=== PATIENT | male | born 1940 | race Caucasian/White ===

== ENCOUNTER 2023-10-27 08:14 | Inpatient (IN) ==
[2023-10-27] MEDS: Lactated Ringers SEPSIS* BAG 1,910 ML IV ONE (08:42)
[2023-10-27 08:49] LABS: ABS Lymphocytes 0.6 10^3/uL (1.0-4.8); ABS Monocytes 0.4 10^3/uL (0.0-1.1); ABS Nucleated RBC 0.01 10^3/ul; Eosinophil % 0.1 %; Hematocrit 45.6 % (38-53); Hemoglobin 15.1 g/dL (13.2-16.3); Lymphocyte % 14.7 %; Mean Corpuscular Hemoglobin 31.9 pg (27-33); Mean Corpuscular Hgb Conc 33.2 g/dL (31-36); Mean Platelet Volume 7.8 fL (7.5-11.2); Nucleated Red Blood Cells % 0.2 %/100WBC (0.0-0.8); Platelet Count 275 10^3/uL (150-450); Red Blood Count 4.75 10^6/uL (4.06-5.63); Red Cell Distribution Width 16.1 % (12-17)
[2023-10-27 08:57] LABS: Activated Partial Thrombo Time 27.3 seconds (26.0-38.0); INR 0.96 (0.83-1.13)
[2023-10-27] MEDS: Iodixanol (CONTRAST) 320 MG/ML 100 ML SDV IV ONE (09:12)
[2023-10-27 09:32] LABS: Albumin 4.1 g/dL (3.2-5.2); Albumin/Globulin Ratio 1.5 (1-3); C Reactive Protein 142.64 mg/L (<8.01); Calcium 8.9 mg/dL (8.6-10.3); Creatinine, Serum 1.76 mg/dL (0.67-1.17); Globulin 2.7 g/dL (2-4); Potassium 3.3 mmol/L (3.5-5.0); Total Protein 6.8 g/dL (6.4-8.9); eGFR CKD-EPI 38.1 (>60)
[2023-10-27] MEDS: Acetaminophen IV 1 GM/100ML 1,000 MG/100 ML BAG IV ONE ×2 (09:41→17:35)
[2023-10-27] MEDS: Piperacillin/Tazobac 3.375 BAG 3.375 GM/100 ML BAG IV ONE (10:01)
[2023-10-27 10:19] LABS: High Sensitivity Troponin 1 Hr 35 pg/mL (<20)
[2023-10-27 10:32] LABS: Urine Appearance Clear; Urine Bacteria Absent /HPF (Absent); Urine Bilirubin Negative (Negative); Urine Blood Trace (Negative); Urine Color Light-Yellow; Urine Glucose Trace (Negative); Urine Ketones Negative (Negative); Urine Nitrite Negative (Negative); Urine Protein 1+ (>=30 mg/dL) (Negative); Urine Red Blood Cell 1+(3-5/hpf) /HPF (0-Trace); Urine Specific Gravity >1.050 (1.002-1.030); Urine Squamous Epithelial Cell Present /HPF (Absent); Urine Urobilinogen Negative (Negative); Urine White Blood Cell Trace(0-5/hpf) /HPF (0-Trace); Urine pH 7.5 (5.0-8.0)
[2023-10-27 12:34] LABS: Hematocrit 38.2 % (38-53); Hemoglobin 12.7 g/dL (13.2-16.3); Mean Corpuscular Hemoglobin 31.7 pg (27-33); Mean Corpuscular Hgb Conc 33.3 g/dL (31-36); Mean Corpuscular Volume 95.3 fL (80-97); Mean Platelet Volume 7.7 fL (7.5-11.2); Platelet Count 192 10^3/uL (150-450); Red Blood Count 4.01 10^6/uL (4.06-5.63); Red Cell Distribution Width 15.6 % (12-17); White Blood Count 3.5 10^3/uL (3.6-10.2)
[2023-10-27] MEDS ORDERED: Rocuronium 50 mg VIAL 10 mg/ml 5 ml VIAL (50 mg) ONE ×2 (13:20→15:36)
[2023-10-27] MEDS ORDERED: Dexamethasone IV 4 MG/ML VIAL 1 ml VIAL ONE (13:20)
[2023-10-27] MEDS ORDERED: Dexmedetomidine 200 mcg/2 ml 2 ml VIAL (200 mcg) ONE ×2 (13:20→13:23)
[2023-10-27] MEDS ORDERED: Ondansetron 4 mg VIAL 2 MG/ML 2 ml VIAL ONE (13:20)
[2023-10-27] MEDS ORDERED: Lidocaine 2% PF 5 ML VIAL ONE (13:20)
[2023-10-27] MEDS ORDERED: Phenylephrine IV 10 MG/ML 1 ml VIAL ONE (13:20)
[2023-10-27] MEDS ORDERED: Propofol 10 MG/ML 20 ML BTL ONE (13:20)
[2023-10-27] MEDS ORDERED: fentaNYL 100 mcg/2 ml 50 MCG/ML VIAL ONE ×2 (13:21→16:18)
[2023-10-27] MEDS: Ondansetron 4 mg VIAL 2 MG/ML 2 ml VIAL IV ONE (13:23)
[2023-10-27] MEDS ORDERED: Bupivacaine 0.25% SDV 30 ML ONE (14:00)
[2023-10-27] MEDS ORDERED: fentaNYL 100 mcg/2 ml 50 MCG/ML VIAL IV PRN (16:37)
[2023-10-27] MEDS ORDERED: Metoclopramide 5 MG/ML VIAL (10 mg) IV PRN (16:37)
[2023-10-27] MEDS ORDERED: Ondansetron 4 mg VIAL 2 MG/ML 2 ml VIAL IV PRN ×2 (16:37→17:05)
[2023-10-27] MEDS ORDERED: Naloxone 0.4 mg VIAL 0.4 mg/ml 1 ml VIAL IV PRN (16:37)
[2023-10-27] MEDS ORDERED: NS 0.45% 1000 ml BAG 1,000 ML IV SCH (17:00)
[2023-10-27] MEDS ORDERED: HYDROmorphone 1 MG/1 ML SYRINGE IV SLOW PU PRN (17:05)
[2023-10-27] MEDS ORDERED: oxyCODONE/Acetamin 5/325 mg TAB PO PRN (17:05)
[2023-10-27] MEDS ORDERED: Calcium Carb (TUMS) 500 mg CHEW TAB PO PRN (17:08)
[2023-10-27] MEDS ORDERED: Levalbuterol 0.63MG/3ML NEB UNIT OF USE INH ONE (17:08)
[2023-10-27] MEDS ORDERED: Dextrose 50% Syringe 50 ml 25 GM/50 ML SYRINGE IV PUSH PRN (17:10)
[2023-10-27] MEDS: Levalbuterol 0.63MG/3ML NEB UNIT OF USE INH PRN (17:10)
[2023-10-27] MEDS ORDERED: hydrALAZINE 20 mg/ml 1 ML Vial IV IV SLOW PU PRN (17:13)
[2023-10-27] MEDS ORDERED: Acetaminophen IV 1 GM/100ML 1,000 MG/100 ML BAG IV ONE (17:35)
[2023-10-27] MEDS ORDERED: Furosemide 20 mg/2 ml IV VIAL ONE (17:39)
[2023-10-27 18:32] LABS: ABS Lymphocytes 0.4 10^3/uL (1.0-4.8); ABS Monocytes 0.5 10^3/uL (0.0-1.1); ABS Nucleated RBC 0.01 10^3/ul; Hematocrit 39.1 % (38-53); Hemoglobin 12.7 g/dL (13.2-16.3); Lymphocyte % 7.4 %; Mean Corpuscular Hgb Conc 32.5 g/dL (31-36); Mean Corpuscular Volume 95.3 fL (80-97); Mean Platelet Volume 7.7 fL (7.5-11.2); Nucleated Red Blood Cells % 0.1 %/100WBC (0.0-0.8); Platelet Count 207 10^3/uL (150-450); Red Cell Distribution Width 15.9 % (12-17); White Blood Count 5.9 10^3/uL (3.6-10.2)
[2023-10-27] MEDS: Buffered Lidocaine 1% SYRIN 1 ml INTRADERM ONE (18:59)
[2023-10-27] MEDS: Lactated Ringers 1000 ml BAG 1,000 ML IV SCH ×2 (18:59→19:00)
[2023-10-27] MEDS: cefTRIAXone 1 gm/50 mL D5W 1 GM/50 ML BAG IV SCH (19:00)
[2023-10-27 19:42] LABS: Calcium 7.6 mg/dL (8.6-10.3); Creatinine, Serum 1.28 mg/dL (0.67-1.17); Magnesium 1.2 mg/dL (1.9-2.7); Phosphorus 3.7 mg/dL (2.5-5.0); Potassium 4.6 mmol/L (3.5-5.0); eGFR CKD-EPI 55.9 (>60)
[2023-10-27] MEDS: metroNIDAZOLE IV 500 MG/100ML 500 MG/100 ML BAG IVPB SCH (20:13)
[2023-10-27] MEDS: Magnesium Sulf 4 GM/100 ML IV 4,000 MG/100 ML BAG IVPB ONE (21:59)
[2023-10-28 00:29] LABS: Hematocrit 35.8 % (38-53); Hemoglobin 11.8 g/dL (13.2-16.3)
[2023-10-28] MEDS: HYDROcodone/ACETAMIN 5/325 mg TAB PO PRN (01:58)
[2023-10-28] MEDS: Lactated Ringers 1000 ml BAG 1,000 ML IV ONE (02:03)
[2023-10-28 05:29] LABS: Hematocrit 34.1 % (38-53); Hemoglobin 11.4 g/dL (13.2-16.3); Mean Corpuscular Hemoglobin 31.6 pg (27-33); Mean Corpuscular Hgb Conc 33.4 g/dL (31-36); Mean Corpuscular Volume 94.5 fL (80-97); Mean Platelet Volume 7.6 fL (7.5-11.2); Platelet Count 185 10^3/uL (150-450); Red Blood Count 3.61 10^6/uL (4.06-5.63); Red Cell Distribution Width 15.9 % (12-17); White Blood Count 9.6 10^3/uL (3.6-10.2)
[2023-10-28] MEDS: Linezolid 600 MG/ 300 ML IVPB SCH (05:33)
[2023-10-28 06:13] LABS: Albumin 2.9 g/dL (3.2-5.2); Albumin/Globulin Ratio 1.5 (1-3); Calcium 7.4 mg/dL (8.6-10.3); Creatinine, Serum 1.18 mg/dL (0.67-1.17); Magnesium 2.4 mg/dL (1.9-2.7); Potassium 4.4 mmol/L (3.5-5.0); Total Bilirubin 0.5 mg/dL (0.2-1.0); Total Protein 4.9 g/dL (6.4-8.9); eGFR CKD-EPI 61.6 (>60)
[2023-10-28 07:16] LABS: ABS Lymphocytes 0.6 10^3/uL (1.0-4.8); ABS Monocytes 0.6 10^3/uL (0.0-1.1); ABS Neutrophils 8.4 10^3/uL (1.5-7.6); Lymphocyte % 6.4 %; RBC Morphology Normal (Normal)
[2023-10-28] MEDS ORDERED: Sulfur Hexaflouride MICROSPHR 25 MG VIAL ONE (08:00)
[2023-10-28] MEDS ORDERED: Zosyn per Pharmacy NOTE FOLLOW UP SCH (09:00)
[2023-10-28] MEDS: Piperacillin/Tazobac 3.375 BAG 3.375 GM/100 ML BAG IV ONE (10:38)
[2023-10-28 14:46] LABS: Hematocrit 34.2 % (38-53); Hemoglobin 11.3 g/dL (13.2-16.3)
[2023-10-29] MEDS ORDERED: Benzocaine/Menthol LOZ MT PRN (06:28)
[2023-10-29] MEDS ORDERED: guaiFENesin DM SUGAR FREE 100 MG/10 MG 5 ML UDC PO PRN (06:28)
[2023-10-29 08:36] LABS: ABS Lymphocytes 0.4 10^3/uL (1.0-4.8); ABS Monocytes 0.3 10^3/uL (0.0-1.1); ABS Neutrophils 8.7 10^3/uL (1.5-7.6); Eosinophil % 0.1 %; Hematocrit 34.3 % (38-53); Hemoglobin 11.2 g/dL (13.2-16.3); Lymphocyte % 4.4 %; Mean Corpuscular Hemoglobin 31.4 pg (27-33); Mean Corpuscular Hgb Conc 32.8 g/dL (31-36); Mean Corpuscular Volume 95.8 fL (80-97); Mean Platelet Volume 7.9 fL (7.5-11.2); Platelet Count 200 10^3/uL (150-450); Red Blood Count 3.58 10^6/uL (4.06-5.63); Red Cell Distribution Width 16.1 % (12-17); White Blood Count 9.4 10^3/uL (3.6-10.2)
[2023-10-29 09:03] LABS: Calcium 7.9 mg/dL (8.6-10.3); Creatinine, Serum 1.08 mg/dL (0.67-1.17); Magnesium 2.4 mg/dL (1.9-2.7); Potassium 4.3 mmol/L (3.5-5.0); eGFR CKD-EPI 68.5 (>60)
[2023-10-29] MEDS: metroNIDAZOLE IV 500 MG/100ML 500 MG/100 ML BAG IVPB SCH ×2 (09:09→20:30)
[2023-10-30 06:42] LABS: Hemoglobin 10.7 g/dL (13.2-16.3)
[2023-10-31 10:46] VITALS: BP 147/71
== END 2023-10-31 12:30 | disposition home or self-care (01) | DRG 853 ==
LOC: ED 08:14 → EDHOLD 08:14 → SSU 13:37 → AA 13:54 → SSU 18:31
PROVIDERS: ADMIT Surgery; ATTEND Surgery